=== PATIENT | female | born 2000 ===

== ENCOUNTER 2022-12-06 13:45 | Outpatient (CLI) | payer OTHER | END 2022-12-06 14:55 | disposition home or self-care (01) | LOC: PRENATAL 13:45 | PROVIDERS: ATTEND Obstetrics & Gynecology Maternal & Fetal Medicine | DX: Z76.1 Encounter for health supervision and care of foundling (principal) ==

== ENCOUNTER 2022-12-16 13:03 | Outpatient (CLI) | payer OTHER | END 2022-12-16 14:32 | disposition home or self-care (01) | LOC: PRENATAL 13:03 | PROVIDERS: ATTEND Obstetrics & Gynecology Maternal & Fetal Medicine | DX: O35.9XX0 Maternal care for (suspected) fetal abnormality and damage, unspecified, not applicable or unspecified (principal); O35.3XX0 Maternal care for (suspected) damage to fetus from viral disease in mother, not applicable or unspecified; O28.1 Abnormal biochemical finding on antenatal screening of mother; Z3A.21 21 weeks gestation of pregnancy ==

== ENCOUNTER 2023-02-18 13:24 | Outpatient (CLI) | payer OTHER | END 2023-02-18 15:09 | disposition home or self-care (01) | LOC: PRENATAL 13:24 | PROVIDERS: ATTEND Obstetrics & Gynecology Maternal & Fetal Medicine | DX: O26.849 Uterine size-date discrepancy, unspecified trimester (principal); O36.8199 Decreased fetal movements, unspecified trimester, other fetus; Z3A.30 30 weeks gestation of pregnancy ==